=== PATIENT | female | born 1960 | race Caucasian/White ===

== ENCOUNTER → 2016-12-01 | Outpatient (CLI) | payer OTHER ==
[~2016-12-01] MED LIST: BUPR100CR PO; BUPR150T3 PO; DIAZ5TAB PO; GLUCTAB OR; METF1000 PO; PAXI20TA26 PO; PAXI40TA PO; SIMV20TA PO; SIMV5TAB3 OR; VIST25CA PO; VIST50CA PO; VITA1000 PO
== END ==
LOC: CPRE 12:35
PROVIDERS: ATTEND Obstetrics & Gynecology
DX: Z01.812 Encounter for preprocedural laboratory examination (principal); N95.0 Postmenopausal bleeding; N85.00 Endometrial hyperplasia, unspecified; N84.0 Polyp of corpus uteri

== ENCOUNTER → 2016-12-03 | Day surgery (SDC) | payer OTHER ==
[~2016-12-03] VITALS: Ht 167.6 cm; Wt 140.0 kg
[~2016-12-03] MED LIST changes: +*RESP: ALBUTEROL 2.5 MG/3 ML NEB (PRN) PERIprocedural Use ONLY NEB ONE; +ACETAMINOPHEN 1000 MG/100 ML VIAL IV ONE; -BUPR150T3 PO; +CHLORHEXIDINE GLUCONATE 2 % 1 PACK (2 CLOTHS) TOPICAL PRN; +DO NOT ADM ANY ANTICOAGULANT DRUGS PRN; +FAMOTIDINE 20 MG/2 ML VIAL ONE; -GLUCTAB OR; +IBUPROFEN 400 MG TAB PO ONE; +INSULIN HUMAN REGULAR 1,000 UNITS/10 ML VIAL SQ PRN; +LACTATED RINGER'S 1000 ML IV PRN; +METOPROLOL TARTRATE 25 MG TAB PO PRN; +MIDAZOLAM HCL 2 MG/2 ML VIAL ONE; +ONDANSETRON HCL 4 MG/2 ML VIAL IV PUSH ONE; +OXYTOCIN 10 UNIT/ML AMP ONE; -PAXI20TA26 PO; +PHENYLEPH/NS 1000 MCG/10 ML SYR IV ONE; +POVIDONE IODINE 5% (ANTISEPSIS KIT) 4 APPLICATIONS EACH NARE PRN; +PROPOFOL 200 MG/20 ML AMP IV ONE; +SILVER NITR/POTASSIUM NITRATE APPLICATORS ONE; -SIMV5TAB3 OR; +SODIUM CHLORID 0.9% 500 ML IV PRN; -VIST25CA PO; +ePHEDrine/NS 25 MG/5 ML SYR IV ONE; +fentaNYL CITRATE 250 MCG/5 ML AMP ONE
[2016-12-03 16:30] VITALS: BP 151/80; PULSE 76; RESP 20; TEMP 97.6; O2SAT 93
--- NOTE | 2016-12-03 19:48 | EKG ---
Date Performed: 12/03/2016 Time Performed: 11:37:38 PTAGE: 56 years EKG: Sinus rhythm LOW QRS VOLTAGE IN PRECORDIAL LEADS BORDERLINE ECG PREVIOUS TRACING : 02/16/2011 17.18 Compared to prior tracing no significant change DOCTOR: Sree Julien Interpretating Date/Time 12/03/2016 19:46:39
--- NOTE | 2016-12-04 07:39 | MP ---
cc: [email or web address] Corrected Copy: 12/17/16 DATE OF SURGERY 12/03/2016 PREOPERATIVE DIAGNOSES 1. Postmenopausal bleeding 2. History of endometrial polyp on pathology. 3. Endometrial hyperplasia. POSTOPERATIVE DIAGNOSES 1. Postmenopausal bleeding 2. History of endometrial polyp on pathology. 3. Endometrial hyperplasia. PROCEDURE Hysterectomy with D&C. PATHOLOGY Pending. SURGEON Shae Leavitt MD FINDINGS On examination under anesthesia, the vagina was clean, atrophic. The cervix was small, nulliparous and a very small os. The uterus was not palpable. The adnexa had no masses. The hysteroscopic exam revealed endometrial cavity that measured to 7. The endometrium looked somewhat fluffy. I am not sure that we got into the endometrial cavity and we need to check pathology. The D&C portion revealed a very small amount of tissue. COMPLICATIONS We may have created a false passage. COUNTS Correct. ESTIMATED BLOOD LOSS 25 cc. FLUIDS Crystalloids. CONDITION The patient tolerated the procedure well and went to the recovery room in good condition. PROCEDURE IN DETAIL The patient was taken to the operating room, identified by name band and verbally, given a general anesthetic, prepped and draped in the usual sterile fashion in the dorsal lithotomy position for vaginal surgery. Examination under anesthesia was carried out. Time-out was taken. A weighted speculum was placed in the vagina. The anterior lip of the cervix was grasped with a single-tooth tenaculum. The cervix was attempted to be dilated. I used a silver wire probe. I got to a depth of about 6.5 to 7 cm which probably is normal for this patient. We went very slow with the dilation; it was very difficult and I am not sure if we did not create a false passage. The hysteroscope was inserted after we got up to an 18-English dilator and the entire cavity was visualized. It was quite high. There was a bit of blood in there. We did a D&C with a #1 sharp curette and took another look. This looked a lot more like endometrial cavity. We will check her pathology postoperatively. At this point we removed the hysteroscope and removed the instruments. She did have a little tear on her anterior cervix and I put a little 3-0 Vicryl [id number] stitch in that. She tolerated the procedure well, went to the recovery room in good condition. R. Aakash Leavitt MD RJV/SSB /2:39 PM /2:05 PM
== END | disposition home or self-care (01) ==
LOC: HSDC 10:48
PROVIDERS: ATTEND Obstetrics & Gynecology
DX: N85.01 Benign endometrial hyperplasia (principal); N95.0 Postmenopausal bleeding; E78.5 Hyperlipidemia, unspecified; K21.9 Gastro-esophageal reflux disease without esophagitis; F17.200 Nicotine dependence, unspecified, uncomplicated; E66.9 Obesity, unspecified; F32.9 Major depressive disorder, single episode, unspecified; J45.909 Unspecified asthma, uncomplicated; E11.40 Type 2 diabetes mellitus with diabetic neuropathy, unspecified; E78.00 Pure hypercholesterolemia, unspecified; Z88.5 Allergy status to narcotic agent; Z79.84 Long term (current) use of oral hypoglycemic drugs
CPT/HCPCS: 58558; 88305; 93005; 94664; J0131; J2250; J2370; J2405; J3010; J7613; 92950; J2590